=== PATIENT | female | born 1980 | race Caucasian/White ===

== ENCOUNTER → 2020-10-02 | Outpatient (CLI) | payer OTHER ==
--- NOTE | 2020-10-03 05:20 | MR ---
EXAMINATION TYPE: MR knee RT wo con DATE OF EXAM: 10/02/2020 COMPARISON: None HISTORY: Right knee pain Multiplanar multiecho imaging of the right knee without contrast. There is a moderate knee joint effusion. There is wavy appearance of the posterior cruciate ligament. There is disruption of the anterior cruciate ligament. There is horizontal tear through the posterior horn of the medial meniscus extending to the inferior surface. There is also a vertical tear through the medial aspect of the medial meniscus. The lateral meniscus appears intact. The collateral ligaments appear intact. There is no evidence of a fracture. I see no bony destructive process. The patella is intact. The medial and lateral joint spaces are fairly normal. IMPRESSION: Complete tear anterior cruciate ligament. Moderately large knee joint effusion. Complex horizontal and vertical tear of the medial meniscus involving the posterior horn.
== END | disposition home or self-care (01) ==
LOC: RADMRIMAIN 11:09
PROVIDERS: ATTEND Orthopaedic Surgery
DX: M23.321 Other meniscus derangements, posterior horn of medial meniscus, right knee (principal)

== ENCOUNTER → 2022-10-17 | Outpatient (CLI) | payer BC ==
--- NOTE | 2022-10-20 12:28 | MR ---
EXAMINATION TYPE: MR knee RT wo con DATE OF EXAM: 10/17/2022 COMPARISON: 10/12/2020 HISTORY: Rt knee pain and swelling, Injured 8 days ago, Hx ACL rupture TECHNIQUE: Multiplanar, multisequence imaging of the right knee is performed without IV contrast. FINDINGS: MEDIAL MENISCUS: Diminutive posterior horn and body of the medial meniscus likely secondary to prior meniscectomy. Disc material is seen adjacent to the medial intercondylar spine and this could reflect a flipped fragment. Tear is difficult to exclude. Anterior horn appears to be intact. LATERAL MENISCUS: Anterior and posterior horns are intact without tear. CRUCIATE LIGAMENTS: There is reconstructed ACL with partial tear difficult to exclude. No evidence fo r rupture. PCL is intact. COLLATERAL LIGAMENTS: The medial collateral ligament and lateral collateral ligament complex are inta ct and unremarkable. EXTENSOR MECHANISM: Visualized quadriceps and patellar tendons are intact. EFFUSION: Small joint effusion noted. POPLITEAL CYST: No popliteal/morales cyst. TRICOMPARTMENT SPACES: Intact CARTILAGE: Intact BONE MARROW SIGNAL: No focal abnormal marrow signal is appreciated. OTHER: No additional significant abnormality is appreciated. IMPRESSION: 1.Diminutive posterior horn and body of the medial meniscus likely secondary to prior meniscectomy. D isc material is seen adjacent to the medial intercondylar spine and this could reflect a flipped frag ment. Tear is difficult to exclude. 2. Suspect partial tear of the reconstructed ACL.
== END | disposition home or self-care (01) ==
LOC: RADMRIMAIN 19:20
PROVIDERS: ATTEND Orthopaedic Surgery
DX: M25.561 Pain in right knee (principal)

== ENCOUNTER → 2023-03-02 | Outpatient (CLI) | payer BC ==
--- NOTE | 2023-03-03 18:08 | MM ---
Reason for Exam: Screening (asymptomatic). Baseline mammogram. Patient History: Menarche at age 14. Patient has no children. Premenopausal. Last menstrual period: 02/11/2023 Risk Values: Alejandra 5 year model risk: 0.6%. NCI Lifetime model risk: 11.1%. Prior Study Comparison: Patient's first Mammogram. Tissue Density: The breast tissue is extremely dense which could obscure a lesion on mammography. Findings: Analyzed By CAD. Pattern appears symmetrical. No suspicious groups of microcalcifications, spiculated or lobular masses, architectural distortion or other secondary signs of malignancy are mammographically apparent. Overall Assessment: Negative, BI-RAD 1 Management: Screening Mammogram of both breasts in 1 year. A negative mammogram report should not preclude additional follow up of suspicious palpable abnormalities. Patient should continue monthly self breast exam. A clinical breast exam by your physician is recommended on an annual basis and results should be correlated with mammographic findings. Electronically signed and approved by: Trip Mo D.O. Radiologis
== END | disposition home or self-care (01) ==
LOC: RADMAMWWP 07:09
PROVIDERS: ATTEND Family Medicine
DX: Z12.31 Encounter for screening mammogram for malignant neoplasm of breast (principal)
CPT/HCPCS: 77063; 77067

== ENCOUNTER → 2024-05-21 | Outpatient (CLI) | payer BC ==
--- NOTE | 2024-05-21 08:32 | MM ---
Reason for Exam: Screening (asymptomatic). Last mammogram was performed 1 year(s) and 2 month(s) ago. Patient History: Menarche at age 14. Patient has no children. Premenopausal. Last menstrual period: 05/11/2024 Risk Values: Alejandra 5 year model risk: 0.7%. NCI Lifetime model risk: 11.0%. Prior Study Comparison: 03/02/2023 Bilateral MG 3D screening mammo w/cad, [facility]. Tissue Density: The breasts are extremely dense, which lowers the sensitivity of mammography. Findings: Analyzed By CAD. There is no suspicious group of microcalcifications or new suspicious mass in either breast. Overall Assessment: Benign, BI-RAD 2 Management: Screening Mammogram of both breasts in 1 year. . Patient should continue monthly self-breast exams. A clinical breast exam by your physician is recommended on an annual basis. This exam should not preclude additional follow-up of suspicious palpable abnormalities. Note on Alejnadra scores and lifetime risk: 1. A Alejandra score greater than 3% is considered moderate risk. If this is the case, consider specialist referral to assess eligibility for a risk reducing agent. 2. If overall lifetime risk for the development of breast cancer is 20% or higher, the patient may qualify for future screening with alternating mammogram and breast MRI. [facility], , 05/21/2024 8:29 AM. Electronically signed and approved by: Robert Duncan M.D. Radiologis
== END | disposition home or self-care (01) ==
LOC: RADMAMWWP 07:02
PROVIDERS: ATTEND Family Medicine
DX: Z12.31 Encounter for screening mammogram for malignant neoplasm of breast (principal); R92.343 Mammographic extreme density, bilateral breasts
CPT/HCPCS: 77063; 77067